=== PATIENT | female | born 1995 | race Caucasian/White ===

== ENCOUNTER 2016-10-21 16:15 | Inpatient (IN) | payer OTHER ==
[~2016-10-21] VITALS: Ht 165.1 cm; Wt 56.4 kg
[~2016-10-21 16:15] MED LIST: AMET1TAB4 PO; AZAT5TAB PO; BIOT10005 PO; CULT10CA2 PO; DELT1TAB PO; DICY1CAP8 PO; FAMO20TA PO; FERR325T PO; GLUC1CAP9 PO; GLUC4CHW PO; HUMA100I5 SC; HYDR12.55 PO; INFL10VL IV; INSURSD SC; LACT3000 PO; LOPE2TAB PO; MESA24CASA PO; MESA50SU PR; METH40VIAL IV; PEPC1TAB4 PO; PRED10TA PO; PRED20TA PO; VSL#CAP PO; ZOFR20TA PO; ZOFR4TAB3 PO
[2016-10-21] MEDS ORDERED: NS 1,000 ML IV ONE ×2 (17:30→19:30)
[2016-10-21] MEDS ORDERED: PANTOPRAZOLE 40MG INJ (PROTONIX) (C9113) IV ONE (17:30)
[2016-10-21] MEDS ORDERED: ONDANSETRON 4MG/2ML VIAL (J2405) IV ONE (17:30)
[2016-10-21] MEDS ORDERED: GASTROGRAFIN SOLUTION 30ML (Q9963) PO ONE ×2 (17:45→18:15)
[2016-10-21] MEDS: MORPHINE 4 MG/ML 1ML SYRINGE IV PRN (17:45)
[2016-10-21 17:48] LABS: CONTROL LINE HCG INT CTR LINE PRESENT
[2016-10-21 17:56] LABS: ALBUMIN 3.7 GM/DL (3.2-5.2); ALKALINE PHOSPHATASE 66 U/L (45-117); ALT/SGPT 56 U/L (12-78); AMYLASE 270 U/L (25-115); ANION GAP 7 MEQ/L (8-16); AST/SGOT 35 U/L (15-37); BILIRUBIN,DIRECT 0.2 MG/DL (0.0-0.2); BILIRUBIN,TOTAL 1.1 MG/DL (0.2-1.0); BLOOD UREA NITROGEN 12 MG/DL (7-18); CALCIUM LEVEL 9.1 MG/DL (8.5-10.1); CARBON DIOXIDE LEVEL 24 MEQ/L (21-32); CHLORIDE LEVEL 104 MEQ/L (98-107); CREATININE FOR GFR 1.11 MG/DL (0.55-1.02); GLOMERULAR FILTRATION RATE > 60.0 (>60); GLUCOSE, FASTING 83 MG/DL (70-105); MEAN CORPUSCULAR HEMOGLOBIN 29.8 pg (27.0-33.0); MEAN CORPUSCULAR HGB CONC 33.6 g/dl (32.0-36.5); MEAN CORPUSCULAR VOLUME 88.5 fl (80.0-96.0); PLATELET COUNT, AUTOMATED 318 k/mm3 (150-450); POTASSIUM SERUM 4.5 MEQ/L (3.5-5.1); RED CELL DISTRIBUTION WIDTH 15.1 % (11.5-14.5); SODIUM LEVEL 135 MEQ/L (136-145); TOTAL PROTEIN 7.8 GM/DL (6.4-8.2); WHITE BLOOD COUNT 4.4 K/mm3 (4.0-10.0)
[2016-10-21] MEDS ORDERED: ISOVUE-370 76% 100ML VIAL (Q9967) As Ordered ONE (18:27)
[2016-10-21 18:44] LABS: BANDS 7 % (< 11)
[2016-10-21 18:45] LABS: ANISOCYTOSIS 1+
--- NOTE | 2016-10-21 19:30 | REPUSA ---
CT of the abdomen and pelvis with contrast Clinical statement: Pain. Technique: Multiple axial CT images were obtained from the base of the lungs through the floor of the pelvis utilizing 5 mm axial slices after administration of oral and nonionic intravenous contrast. C oronal and sagittal reconstructions were also obtained. Comparison: 12/30/2015. Findings: Chest: The visualized lung bases are clear. Abdomen: The liver, spleen, pancreas, kidneys, and adrenal glands are unremarkable. The gallbladder s ignificantly distended. No gallstones are identified. The liver remains enlarged, measuring 24.6 cmin longest diameter. No focal hepatic masses identified. The aorta is within normal limits. There is no evidence of abdominal lymphadenopathy or ascites. Pelvis: The bowel is unremarkable, with no obstructive or inflammatory changes. A right-sided ileosto my appears intact. The new bowel anastomosis in the region of the rectum appears grossly intact. The urinary bladder is within normal limits. The other pelvic structures appear grossly intact. There is no evidence of pelvic lymphadenopathy or ascites. Bones: There are no suspicious osseous abnormalities seen. Impression: 1. The right-sided ileostomy is intact. Other postsurgical bowel changes are grossly within normal li mits. No obstructive or inflammatory bowel changes. 2. Stable hepatomegaly. 3. Distended gallbladder. No evidence of cholelithiasis or acute cholecystitis.
[2016-10-21 20:20] VITALS: BP 123/73
[2016-10-21] MEDS: NS 1,000 ML IV SCH (20:27)
[2016-10-21] MEDS ORDERED: PERCOCET 5MG/325MG TAB PO PRN (20:30)
[2016-10-21] MEDS: PANTOPRAZOLE 40MG INJ (PROTONIX) (C9113) IV SCH (21:00)
[2016-10-21] MEDS ORDERED: ZOFR20TA PO (21:30)
--- NOTE | 2016-10-21 21:40 | REPUSA ---
Clinical history: Right upper quadrant pain. Pancreatitis. Findings: The pancreas is limited in visualization secondary to overlying bowel gas, but appears medardo sly unremarkable. The liver demonstrates uniform echotexture and echogenicity, with no mass lesions. The gallbladder is unremarkable. The common bile duct measures 3 mm and is within normal limits. The right kidney measures 10 cm in length and is unremarkable. There is no ascites. Impression: Unremarkable ultrasound examination of the right upper quadrant.
--- NOTE | 2016-10-21 23:03 | HPE ---
DATE OF ADMISSION: 10/21/2014 PRIMARY CARE PROVIDER: Nadya Webster MD CHIEF COMPLAINT: Left upper quadrant abdominal pain radiating to the back. HISTORY OF PRESENT ILLNESS: The patient is a 20-year-old female with a history of ulcerative colitis who is status post colectomy in August with end-ileostomy, which was completed in April, which since has resolved her symptoms. She reported having been down in [place] for the fall until the past week with her boyfriend and she has been drinking more than usual. Since then she has been having abdominal pain which has progressively worsened, associated with nausea and vomiting. She denies any change in medications. She also reports that while she was down in [place], she was sick with a upper respiratory infection (URI) like symptoms which has resolved. She denies lightheadedness, dizziness, chest pain, shortness of breath, fever or chills of late. PAST MEDICAL HISTORY: Ulcerative colitis. Colectomy with ileostomy in April and then J pouch in August. History of attention deficit/hyperactivity disorder (ADHD). Anemia. Nephrolithiasis. Depression. PAST SURGICAL HISTORY: [place] tooth extraction. Colectomy as outlined above. HOME MEDICATIONS: Since her surgery she has only been on Amethia oral contraceptives. She has been on this for approximately two years. She recently completed a course of prednisone for adrenal insufficiency related to pouchitis and a course of Cipro and Flagyl at that time as well. SOCIAL HISTORY: The patient lives with her parents. 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 She denies excessive alcohol use but was drinking more two drinks per day while in [place]. She is a former smoker, one pack per day, quit one year ago. 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 She is a [employer]. FAMILY HISTORY: Noncontributory. REVIEW OF SYSTEMS: Negative other than HPI. ALLERGIES: No known drug allergies. PHYSICAL EXAMINATION: Temperature 98.8, pulse 91, respiratory rate 18, blood pressure 127.69, O2 saturation 97% on room air. GENERAL: This is a pleasant young female who is sitting on a stretcher, in no acute distress. HEENT: Cranial nerves II-XII are grossly intact. She has numerous piercings. She has moist mucous membranes. No elevation of central venous pressure (CVP). CARDIOVASCULAR: S1, S2. She is mildly tachycardic. RESPIRATORY: Exam is clear. ABDOMEN: Bowel sounds are present. Abdomen is soft. Her ileostomy is draining loose watery stool. There is tenderness to palpation of the epigastric region. EXTREMITIES: No clubbing, cyanosis or edema. LABORATORY STUDIES: WBC 4.4, hemoglobin 50.3, platelet count 318. Chemistry panel: Sodium 135, potassium 4.5, chloride 104, bicarbonate 24, BUN 12, creatinine 1.1, amylase 270, lipase 2717. UA: Essentially unremarkable. IMAGING: The patient did have a CT scan of the abdomen which reveals right sided ileostomy intact. Stable hepatomegaly. Distended gallbladder. No evidence of cholelithiasis or acute cholelithiasis. ASSESSMENT AND PLAN: This is a 20-year-old female with pancreatitis. 1. Pancreatitis. The etiology of which remains somewhat unclear. She denies excessive intake, but more than her usual alcohol intake prior to the onset. I feel this is the most likely scenario. However, she is also on Amethia, which can cause pancreatitis. I think this is less likely as she has been on this medication for two years. However, for the time being we will hold this while she is in the hospital. Also the patient did have a recent upper respiratory tract infection, which could be a viral source. I will check a lipid panel in the morning and get a second gallbladder ultrasound as her gallbladder was distended. CT scan of her abdomen did not reveal any arcadio stones. The patient will be provided with IV pain medication, IV fluids, kept nothing by mouth (npo) and admitted to the medical/surgical floor. 2. History of ulcerative colitis. Status post ileostomy. She is apparently not on any medication or treatment for this at this time. 3. Adrenal insufficiency. She was chronically on prednisone and during a recent episode of pouchitis she did have some adrenal insufficiency. Will monitor closely. Should she become hemodynamically unstable or worsened despite our interventions, consider IV hydrocortisone. 4. Anemia. Resolved. 5. Depression. She is not on any medications. Does not appear at all depressed. 6. ADHD. The patient is no longer on any medications. 7. Deep venous thrombosis (DVT) prophylaxis. Sequentials and thromboembolism deterrents (TEDs), early ambulation. DISPOSITION: The patient is admitted to the medical surgical floor to Dr. Arrieta's service who will continue following the patient at 7:00 a.m.
[2016-10-22] VITALS: BP 116/68
[2016-10-22 04:00] VITALS: BP 108/59
[2016-10-22 06:49] LABS: MEAN CORPUSCULAR HEMOGLOBIN 29.9 pg (27.0-33.0); MEAN CORPUSCULAR HGB CONC 33.5 g/dl (32.0-36.5); MEAN CORPUSCULAR VOLUME 89.2 fl (80.0-96.0); RED CELL DISTRIBUTION WIDTH 14.8 % (11.5-14.5); WHITE BLOOD COUNT 4.4 K/mm3 (4.0-10.0)
[2016-10-22 07:11] LABS: ANION GAP 9 MEQ/L (8-16); BLOOD UREA NITROGEN 8 MG/DL (7-18); CALCIUM LEVEL 7.3 MG/DL (8.5-10.1); CARBON DIOXIDE LEVEL 19 MEQ/L (21-32); CHLORIDE LEVEL 111 MEQ/L (98-107); CREATININE FOR GFR 0.75 MG/DL (0.55-1.02); GLOMERULAR FILTRATION RATE > 60.0 (>60); GLUCOSE, FASTING 71 MG/DL (70-105); POTASSIUM SERUM 3.8 MEQ/L (3.5-5.1); SODIUM LEVEL 139 MEQ/L (136-145)
[2016-10-22] MEDS: NS 1,000 ML IV SCH (07:13)
[2016-10-22 08:00] VITALS: BP 132/61
[2016-10-22] MEDS: ONDANSETRON 4MG/2ML VIAL (J2405) IV PRN ×3 (08:23→21:26)
[2016-10-22] MEDS: PERCOCET 5MG/325MG TAB PO PRN ×2 (08:24→16:08)
[2016-10-22] MEDS ORDERED: DEXTROSE 50% 50 ML SYRINGE IV PRN (13:15)
[2016-10-22] MEDS ORDERED: GLUCOSE 4 GM CHEW TABLET PO PRN (13:15)
[2016-10-22] MEDS ORDERED: GLUCAGON FOR INJ 1 MG VIAL (J1610) SC PRN (13:15)
[2016-10-22] MEDS: D5W/0.9% SODIUM CHLORIDE 1,000 ML IV SCH ×2 (13:45→21:27)
[2016-10-22] MEDS: MULTIVITAMIN -ADULT INJECTION 10 ML in D5W/0.9% SODIUM CHLORIDE 1,000 ML IV SCH (14:11)
[2016-10-22 16:00] VITALS: BP 104/56
--- NOTE | 2016-10-22 18:06 | IPN ---
DATE: 10/22/2016 SUBJECTIVE: The patient seen and examined in the room today. The patient says her abdominal pain seemed improving. No overnight events reported. OBJECTIVE: VITAL SIGNS: Temperature is 97.9, pulse 103, respiratory rate 99, followup blood pressure is 132/61, pulse oximetry 95% on room air. GENERAL: No sign of acute distress. Alert and oriented times three. HEENT: Normocephalic, atraumatic. Extraocular motor grossly intact. CARDIOVASCULAR: Positive S1, S2 regular rate. LUNGS: Clear to auscultation bilaterally. ABDOMEN: Bowel sounds are present. Abdomen is soft. Ileostomy is seen in place. EXTREMITIES: No edema. No sign of cyanosis. LABORATORY DATA: White blood count (WBC) is 4.4, hemoglobin 11.3, hematocrit 33.4, platelet count is 195. Sodium is 139, potassium is 3.8, chloride is 111, CO2 19, BUN 8, creatine is 0.75, glomerular filtration rate (GFR) greater than 60, fasting glucose is 71, calcium is 7.3, lipase is 1606. ASSESSMENT AND PLAN: 1. Acute pancreatitis. Ultrasound was performed; there is no stone. The patient lipid panel is within normal range. Denies any recent medication changes. The patient is nothing by mouth due to the hypoglycemic episode. The patient's normal saline is switched to D5 normal saline (NS). The patient will continue taking pain medication as needed. 2. History of ulcerative colitis, status post ileostomy. The patient is following with Dr. Coronel in an outpatient setting. The patient is not on any medication treatments. 3. History of renal insufficiency. The patient was on chronic steroids previously. Will continue monitoring. If the patient becomes hemodynamically unstable, will use IV steroids. 4. History of anemia, resolved. 5. History of depression. 6. History of attention deficit hyperactive disorder (ADHD), not on any medications. 7. Deep vein thrombosis (DVT) prophylaxis. SAW, sequential and compression device. MTDD
[2016-10-22 20:00] VITALS: BP 122/81
[2016-10-22] MEDS: PANTOPRAZOLE 40MG INJ (PROTONIX) (C9113) IV SCH (20:10)
[2016-10-22] MEDS: MORPHINE 2 MG/ML 1ML SYRINGE IV PRN (20:30)
[2016-10-23] MEDS: MORPHINE 2 MG/ML 1ML SYRINGE IV PRN ×2 (03:15→13:08)
[2016-10-23 04:00] VITALS: BP 120/68
[2016-10-23] MEDS: D5W/0.9% SODIUM CHLORIDE 1,000 ML IV SCH (06:14)
[2016-10-23 07:53] LABS: MEAN CORPUSCULAR HEMOGLOBIN 29.6 pg (27.0-33.0); MEAN CORPUSCULAR HGB CONC 33.4 g/dl (32.0-36.5); MEAN CORPUSCULAR VOLUME 88.5 fl (80.0-96.0); WHITE BLOOD COUNT 3.4 K/mm3 (4.0-10.0)
[2016-10-23 08:00] VITALS: BP 92/54
[2016-10-23 08:10] LABS: ANION GAP 5 MEQ/L (8-16); BLOOD UREA NITROGEN 2 MG/DL (7-18); CALCIUM LEVEL 7.5 MG/DL (8.5-10.1); CARBON DIOXIDE LEVEL 25 MEQ/L (21-32); CHLORIDE LEVEL 108 MEQ/L (98-107); CREATININE FOR GFR 0.84 MG/DL (0.55-1.02); GLOMERULAR FILTRATION RATE > 60.0 (>60); GLUCOSE, FASTING 123 MG/DL (70-105); POTASSIUM SERUM 3.2 MEQ/L (3.5-5.1); SODIUM LEVEL 138 MEQ/L (136-145)
[2016-10-23] MEDS: ONDANSETRON 4MG/2ML VIAL (J2405) IV PRN (13:07)
[2016-10-23] MEDS: KCL 10MEQ IN 100ML SWI (KRUN) 10 MEQ in APPROPRIATE DILUENT 1 EA IV SCH ×4 (13:08→14:07)
[2016-10-23] MEDS: MULTIVITAMIN -ADULT INJECTION 10 ML in D5W/0.9% SODIUM CHLORIDE 1,000 ML IV SCH (15:24)
[2016-10-23 17:00] VITALS: BP 107/64
--- NOTE | 2016-10-23 17:42 | IPN ---
DATE: 10/23/2016 SUBJECTIVE: The patient seen and examined in the room today. The patient is still experiencing some intermittent abdominal pain but intensity and frequency is much improved compared to a few days ago. No overnight events reported. OBJECTIVE: VITAL SIGNS: Temperature is 98.7, pulse 62, respirations 16. Blood pressure is 92/54. Pulse oximetry is 100% on room air. GENERAL: No sign of acute distress. Alert and oriented times three. HEENT: Normocephalic, atraumatic. Extraocular motor grossly intact. LUNGS: Clear to auscultation bilaterally. CV: RR, positive S1 and S2. ABDOMEN: Ileostomy in place. Abdomen is soft. bowel sounds are present. EXTREMITIES: No edema. No sign of cyanosis. LABORATORY DATA: White blood count (WBC) is 3.4, hemoglobin 11.6, hematocrit 34.9, platelet count is 221. Sodium is 138, potassium is 3.2, chloride is 108, carbon dioxide is 25, BUN 2, creatinine 0.84, GFR greater than 60, fasting glucose 123, calcium is 7.5, lipase level is 1093. ASSESSMENT AND PLAN: 1. Acute pancreatitis. Ultrasound was performed and showed there is no stone. Lipid panel is within normal range. Denies any recent medication changes. The patient is nothing by mouth. Pain controlled is IV morphine. The patient is currently maintained with D5-S. 2. Hypoglycemia. When the patient is nothing by mouth, the patient started to have an episode of glucose level of 59. The patient does not have diabetes. The patient's fluid was switched from normal saline to D5NS. 3. Hypokalemia. The patient's potassium is supplemented intravenously. 4. Ulcerative colitis. The patient has been followed with Dr. Coronel in the outpatient setting. The patient is not on any active medication regimen at this moment. 5. History of adrenal insufficiency. The patient was on chronic steroids previously. Continue to monitor. If the patient becomes hemodynamically unstable, will use IV steroids. 6. History of anemia, stable 7. History of depression, stable. 8. History of attention deficit hyperactive disorder (ADHD), not on any medications, stable. 9. Deep vein thrombosis (DVT) prophylaxis. On thromboembolic compression stockings (TEDS), sequential and compression device. MTDD
[2016-10-23] MEDS ORDERED: ACETAMINOPHEN TAB 650MG DOSE (2X325MG) PO ONE (17:45)
[2016-10-23 20:00] VITALS: BP 105/58
[2016-10-23] MEDS: PANTOPRAZOLE 40MG INJ (PROTONIX) (C9113) IV SCH (21:22)
[2016-10-23] MEDS: KCL 20MEQ IN D5/NS 1000ML 1,000 ML IV SCH (23:13)
[2016-10-24] VITALS: BP 108/62
[2016-10-24] MEDS: KCL 20MEQ IN D5/NS 1000ML 1,000 ML IV SCH ×4 (05:40→22:39)
[2016-10-24] MEDS: ONDANSETRON 4MG/2ML VIAL (J2405) IV PRN ×2 (08:17→23:31)
[2016-10-24 08:18] LABS: MEAN CORPUSCULAR HEMOGLOBIN 29.5 pg (27.0-33.0); MEAN CORPUSCULAR HGB CONC 33.4 g/dl (32.0-36.5); MEAN CORPUSCULAR VOLUME 88.4 fl (80.0-96.0); WHITE BLOOD COUNT 4.3 K/mm3 (4.0-10.0)
[2016-10-24] MEDS: MORPHINE 2 MG/ML 1ML SYRINGE IV PRN (08:26)
[2016-10-24 08:38] LABS: ANION GAP 8 MEQ/L (8-16); BLOOD UREA NITROGEN < 1 MG/DL (7-18); CALCIUM LEVEL 7.8 MG/DL (8.5-10.1); CARBON DIOXIDE LEVEL 23 MEQ/L (21-32); CHLORIDE LEVEL 110 MEQ/L (98-107); CREATININE FOR GFR 0.75 MG/DL (0.55-1.02); GLOMERULAR FILTRATION RATE > 60.0 (>60); GLUCOSE, FASTING 118 MG/DL (70-105); POTASSIUM SERUM 3.9 MEQ/L (3.5-5.1); SODIUM LEVEL 141 MEQ/L (136-145)
[2016-10-24 08:40] VITALS: BP 118/60
[2016-10-24] MEDS: MULTIVITAMIN -ADULT INJECTION 10 ML in D5W/0.9% SODIUM CHLORIDE 1,000 ML IV SCH (13:34)
--- NOTE | 2016-10-24 15:00 | IPN ---
DATE: 10/24/2016 SUBJECTIVE: The patient is seen and examined in the room today. Yesterday, the patient had an episode of fever. Oral temperature was measured at 100.5 around 5:00 o'clock. The patient was taking a nap at the time of the event. One dose of Tylenol was given, and then the fever resolved spontaneously. This morning, the patient had a temperature of 99. The patient could not recall any significant triggers. This morning, the patient did experience some intermittent nausea. No vomiting. The patient also started to experience a new type of abdominal pain. She feels that it is pain from empty stomach for a long duration. It is not pancreatitis pain that she had experienced previously. OBJECTIVE: VITAL SIGNS: Temperature is 99, pulse 94, respiration rate 18. Blood pressure is 118/60. Pulse oximetry is 98% on room air. GENERAL: No sign of acute distress. Alert and oriented times three. HEENT: Normocephalic, atraumatic. Extraocular motor grossly intact. CARDIOVASCULAR: Positive S1, S2. Regular rate. LUNGS: Clear to auscultation bilaterally. ABDOMEN: Ileostomy in place. Abdomen is soft. Bowel sounds present. EXTREMITIES: No edema. No sign of cyanosis. LABORATORY DATA: White blood count (WBC) is 4.3, hemoglobin 11.4, hematocrit 34.2, platelet count is 235. Sodium is 141, potassium is 3.9, chloride is 110, carbon dioxide is 23, BUN less than 1, creatinine 0.75, GFR greater than 60, fasting glucose 118, calcium is 7.8, lipase is 517. ASSESSMENT AND PLAN: 1. Pancreatitis. The patient has been nothing by mouth and on fluid resuscitation. The patient's pain control is managed with IV morphine. The patient's lipase level continues to be improved. Since admission it has been [place] [address] to 500. The patient has had significant improvement in the abdominal pain. Today, we will try a clear liquid diet at lunchtime. If the patient can tolerate it, we will advance to full liquids in the evening time. 2. Anemia. No active sign of bleeding noted. Continue to monitor. 3. Hypoglycemia, resolved. Previously, the patient was nothing by mouth and the patient was on normal saline, but since the patient is switched to D5 normal saline, no recurrence of hypoglycemia has been observed. The patient is on hypoglycemia protocol. 4. Hypokalemia. The patient had supplement. Currently, potassium level is within normal range. Continue to monitor. 5. Ulcerative colitis. The patient has been followed with Dr. Coronel in the outpatient setting. The patient is not on any active medications at this moment. Continue to monitor. 6. History of adrenal insufficiency. The patient was on chronic steroids previously. Continue to monitor. If the patient becomes hemodynamically stable, we will use IV steroids. 7. History of depression, stable. Not on any medications. 8. History of attention deficit hyperactive disorder (ADHD), not on any medications. 9. Deep vein thrombosis (DVT) prophylaxis. The patient is on thromboembolic compression stockings (TEDS), sequential and compression device.
[2016-10-24 16:00] VITALS: BP 108/62
[2016-10-24 19:30] VITALS: BP 108/60
[2016-10-24] MEDS ORDERED: ACETAMINOPHEN TAB 650MG DOSE (2X325MG) PO PRN (20:00)
[2016-10-24] MEDS: PANTOPRAZOLE 40MG INJ (PROTONIX) (C9113) IV SCH (20:39)
[2016-10-25 04:00] VITALS: BP 102/87
[2016-10-25] MEDS: ONDANSETRON 4MG/2ML VIAL (J2405) IV PRN ×2 (07:52→18:02)
[2016-10-25 08:00] VITALS: BP 106/58
[2016-10-25 08:17] LABS: MEAN CORPUSCULAR HGB CONC 33.4 g/dl (32.0-36.5); MEAN CORPUSCULAR VOLUME 89.6 fl (80.0-96.0); WHITE BLOOD COUNT 3.8 K/mm3 (4.0-10.0)
[2016-10-25 09:39] LABS: POTASSIUM SERUM 4.1 MEQ/L (3.5-5.1); SODIUM LEVEL 142 MEQ/L (136-145)
[2016-10-25] MEDS: KCL 20MEQ IN D5/NS 1000ML 1,000 ML IV SCH ×2 (10:05→23:31)
[2016-10-25 10:19] LABS: ANION GAP 8 MEQ/L (8-16); BLOOD UREA NITROGEN < 1 MG/DL (7-18); CALCIUM LEVEL 7.9 MG/DL (8.5-10.1); CARBON DIOXIDE LEVEL 23 MEQ/L (21-32); CHLORIDE LEVEL 111 MEQ/L (98-107); CREATININE FOR GFR 0.73 MG/DL (0.55-1.02); GLOMERULAR FILTRATION RATE > 60.0 (>60); GLUCOSE, FASTING 104 MG/DL (70-105)
[2016-10-25] MEDS: MORPHINE 2 MG/ML 1ML SYRINGE IV PRN ×2 (12:09→18:02)
[2016-10-25 12:15] VITALS: BP 110/63
[2016-10-25] MEDS ORDERED: ONDANSETRON 4MG/2ML VIAL (J2405) IV ONE (12:30)
[2016-10-25] MEDS: MORPHINE 4 MG/ML 1ML SYRINGE IV PRN (12:45)
[2016-10-25] MEDS: MULTIVITAMIN -ADULT INJECTION 10 ML in D5W/0.9% SODIUM CHLORIDE 1,000 ML IV SCH (15:26)
[2016-10-25 16:00] VITALS: BP 120/64
[2016-10-25] MEDS ORDERED: COSYNTROPIN 0.25 MG/ML VIAL (J0835) IV ONE (17:00)
[2016-10-25 20:00] VITALS: BP 106/53
[2016-10-25] MEDS: PANTOPRAZOLE 40MG INJ (PROTONIX) (C9113) IV SCH (20:40)
--- NOTE | 2016-10-25 23:07 | IPN ---
DATE: 10/25/2016 SUBJECTIVE: Patient seen and examined in the room today. Patient states she started having recurrence of the fever yesterday around 6:45. Patient started having persistent nausea since then. Patient also complained about recurrence of the abdominal pain. Patient was started on liquid diet yesterday. Patient also noted to have positive Hemoccult. OBJECTIVE: VITAL SIGNS: Temperature 98.5, pulse is 84, respirations 18, blood pressure is 106/58, pulse oximetry 98% in room air. GENERAL: Fatigued. No sign of acute distress. Alert and oriented times three. HEENT: Normocephalic, atraumatic. Extraocular motor grossly intact. CARDIOVASCULAR: Positive S1, S2, regular rate. LUNGS: Clear to auscultation bilaterally. ABDOMEN: Ileostomy in place. Abdomen is soft. Discomfort to palpation. EXTREMITIES: No edema. No sign of cyanosis. LABORATORY DATA: WBC is 3.8, hemoglobin 11.1, hematocrit 33.2, platelet count is 207. ESR is 39. Sodium is 142, potassium 4.1, chloride is 111, carbon dioxide 23, BUN is less than 1, creatinine is 0.73, GFR greater than 60, fasting glucose 104, calcium 7.9, C-reactive protein 3.25. Lipase is 1456. 1. Acute pancreatitis. Initially patient has continued improvement on the lipase level. Patient's abdominal pain also shows significant improvement. Patient was started on a clear liquid diet and full liquid diet yesterday; however, since the initiation of the oral intake, patient started to have recurrence and worsening of the abdominal pain. Patient still complained about persistent nausea and there is elevation in the lipase, so patient was put back on nothing by mouth. The gastrointestinal (GI) specialist, Dr. Coronel, will be consulted. 2. History of ulcerative colitis, status post complete colon resection. Patient has anastomosis of the jejunum and anus. Patient has an ostomy. Now patient started noted to have positive Hemoccult. GI specialist, Dr. Coronel, has been consulted. 3. Anemia. Now patient is Hemoccult positive. Patient is not on any blood thinner. 4. Hypokalemia. Patient is receiving potassium through the intravenous (IV). Continue to monitor level. 5. Hypoglycemia. Previously patient was put on nothing by mouth, and the patient was on normal saline; however, the patient has hypoglycemia, and her fluid is changed to D5 normal saline. No recurrence of hypoglycemic episodes observed. 6. History of adrenal insufficiency. Patient on chronic steroid previously. Will consider use of IV steroid if patient becomes hemodynamically stable. 7. History of depression. Not on any active medication. 8. History of attention deficit hyperactivity disorder (ADHD). Not on any active medications. 9. Deep vein thrombosis (DVT) prophylaxis. Patient has thromboembolic deterrents (TEDs) and sequential compression devices.
[2016-10-26 04:00] VITALS: BP 90/55
[2016-10-26 06:42] LABS: MEAN CORPUSCULAR HEMOGLOBIN 29.8 pg (27.0-33.0); MEAN CORPUSCULAR HGB CONC 33.3 g/dl (32.0-36.5); MEAN CORPUSCULAR VOLUME 89.7 fl (80.0-96.0); RED CELL DISTRIBUTION WIDTH 14.9 % (11.5-14.5); WHITE BLOOD COUNT 3.8 K/mm3 (4.0-10.0)
[2016-10-26 07:05] LABS: ANION GAP 6 MEQ/L (8-16); BLOOD UREA NITROGEN < 1 MG/DL (7-18); CALCIUM LEVEL 7.4 MG/DL (8.5-10.1); CARBON DIOXIDE LEVEL 26 MEQ/L (21-32); CHLORIDE LEVEL 109 MEQ/L (98-107); CREATININE FOR GFR 0.74 MG/DL (0.55-1.02); GLOMERULAR FILTRATION RATE > 60.0 (>60); GLUCOSE, FASTING 111 MG/DL (70-105); POTASSIUM SERUM 3.5 MEQ/L (3.5-5.1); SODIUM LEVEL 141 MEQ/L (136-145)
[2016-10-26] MEDS: ONDANSETRON 4MG/2ML VIAL (J2405) IV PRN ×3 (07:11→22:45)
[2016-10-26] MEDS: MORPHINE 2 MG/ML 1ML SYRINGE IV PRN (07:11)
[2016-10-26] MEDS: KCL 20MEQ IN D5/NS 1000ML 1,000 ML IV SCH ×2 (07:12→14:53)
[2016-10-26 08:00] VITALS: BP 132/68
[2016-10-26] MEDS: PERCOCET 5MG/325MG TAB PO PRN (08:00)
[2016-10-26 09:18] LABS: ALBUMIN 2.1 GM/DL (3.2-5.2); ALBUMIN/GLOBULIN RATIO 0.68 (1.00-1.93); ALKALINE PHOSPHATASE 44 U/L (45-117); ALT/SGPT 27 U/L (12-78); AST/SGOT 10 U/L (15-37); BILIRUBIN,DIRECT < 0.1 MG/DL (0.0-0.2); BILIRUBIN,TOTAL 0.3 MG/DL (0.2-1.0); TOTAL PROTEIN 5.2 GM/DL (6.4-8.2)
[2016-10-26] MEDS: MORPHINE 4 MG/ML 1ML SYRINGE IV PRN ×2 (09:50→18:22)
[2016-10-26] MEDS: predniSONE 20 MG TAB PO SCH (09:54)
[2016-10-26 10:20] LABS: INR 1.15
--- NOTE | 2016-10-26 14:25 | IPN ---
DATE: 10/26/2016 SUBJECTIVE: Patient seen and examined in the room today. Patient continues to complain about persistent nausea. This morning patient noted to have blood in the vomit. Patient continued to see blood in the stool. Yesterday ACTH study was performed. During the study the patient stated her symptoms showed significant better when the patient resumed cosyntropin. OBJECTIVE: VITAL SIGNS: Temperature 98.7, pulse is 95, respirations 18, blood pressure is 132/68, pulse oximetry 98% in room air. GENERAL: Fatigued. Mild to moderate distress secondary to ongoing abdominal pain and nausea. Alert and oriented times three. HEENT: Normocephalic, atraumatic. Extraocular motors grossly intact. CARDIOVASCULAR: Positive S1, S2, regular rate. LUNGS: Clear to auscultation bilaterally. ABDOMEN: Ileostomy is in place over the right lower abdomen. Abdomen is soft. Bowel sounds present. There is discomfort to palpation. EXTREMITIES: No edema. No sign of cyanosis. LABORATORY DATA: WBC is 3.8, hemoglobin 10.7, hematocrit 32.2, platelet count is 213. Sodium is 141, potassium 3.5, chloride is 109, carbon dioxide 26, BUN is less than 1, creatinine is 0.74, GFR greater than 60, fasting glucose 111, calcium 7.4, total bilirubin 0.3, direct bilirubin less than 0.1, AST 10, ALT 27, alkaline phosphatase 44, total protein is 5.2, albumin 2.1. Lipase is 366. ASSESSMENT/PLAN: 1. Persistent abdominal pain. When the patient was admitted, the patient did have elevated lipase and amylase. The patient has bee placed nothing by mouth. Her lipase level continues to decrease, however, the patient does still complain about persistent abdominal discomfort, now with blood in the stool and blood in the vomit. Patient's pain is not improving with improvement of the lipase. Dr. Coronel has been consulted. We will continue to keep the patient nothing by mouth until the resolution of abdominal pain and vomiting. If the patient's symptoms resolve tomorrow, we can advance the patient to a liquid diet. 2. Acute pancreatitis. Patient has been nothing by mouth with IV fluids. Today, the lipase finally returned to normal range. I will continue to monitor. 3. History of ulcerative colitis, status post complete colon resection. Patient has anastomosis of the jejunum and anus. Patient currently has an ostomy. Most recent procedure was done in August of 2016. Currently patient has a positive hemoccult. 4. Anemia. Hemoccult positive. Per patient, patient started to have blood in the vomit. The patient is not on any blood thinners. Will continue to monitor the patient's hemoglobin and hematocrit. There is no significant drop of hemoglobin and hematocrit at this moment. Patient is hemodynamically stable. 5. Episode of hypoglycemia. In the first 24 hours when the patient was placed nothing by mouth and supplemented with IV normal sale, the patient had an episode of hypoglycemia and the fluid has been adjusted to the D5NS, no recurrence of hypoglycemic since. 6. History of adrenal insufficiency. Patient was chronic high dose steroid therapy previously. The last time the patient had steroids was approximately three weeks ago. ACTH challenge test was ordered. Will follow with the results. We will start a trial of prednisone for the patient to see if the patient can improve symptomatically. 7. History of depression. Not on any active medication. 8. History of attention deficit hyperactivity disorder (ADHD). Not on any active medications. 9. Deep vein thrombosis (DVT) prophylaxis. Due to current bleeding, patient is on thromboembolic deterrent stockings (TEDS), and sequential compression devices (SCD).
[2016-10-26] MEDS: PANTOPRAZOLE 40MG INJ (PROTONIX) (C9113) IV SCH ×2 (14:56→21:16)
[2016-10-26 16:00] VITALS: BP 98/55
[2016-10-26] MEDS: MULTIVITAMIN -ADULT INJECTION 10 ML in D5W/0.9% SODIUM CHLORIDE 1,000 ML IV SCH (16:04)
[2016-10-26] MEDS: SUCRALFATE 1 GM TAB PO SCH ×2 (18:23→21:15)
[2016-10-26 20:00] VITALS: BP_SYST 120; BP_SYST 124; BP_DIAS 55; BP_DIAS 68
[2016-10-27] VITALS: BP 108/59
[2016-10-27] MEDS: KCL 20MEQ IN D5/NS 1000ML 1,000 ML IV SCH (01:10)
[2016-10-27 06:45] LABS: MEAN CORPUSCULAR HEMOGLOBIN 30.1 pg (27.0-33.0); MEAN CORPUSCULAR HGB CONC 34.3 g/dl (32.0-36.5); MEAN CORPUSCULAR VOLUME 87.8 fl (80.0-96.0); RED CELL DISTRIBUTION WIDTH 14.8 % (11.5-14.5); WHITE BLOOD COUNT 4.6 K/mm3 (4.0-10.0)
[2016-10-27 07:06] LABS: ANION GAP 7 MEQ/L (8-16); BLOOD UREA NITROGEN < 1 MG/DL (7-18); CALCIUM LEVEL 7.5 MG/DL (8.5-10.1); CARBON DIOXIDE LEVEL 26 MEQ/L (21-32); CHLORIDE LEVEL 110 MEQ/L (98-107); CREATININE FOR GFR 0.73 MG/DL (0.55-1.02); GLOMERULAR FILTRATION RATE > 60.0 (>60); GLUCOSE, FASTING 100 MG/DL (70-105); POTASSIUM SERUM 3.2 MEQ/L (3.5-5.1); SODIUM LEVEL 143 MEQ/L (136-145)
[2016-10-27] MEDS: SUCRALFATE 1 GM TAB PO SCH ×4 (08:16→20:34)
[2016-10-27] MEDS: PANTOPRAZOLE 40MG INJ (PROTONIX) (C9113) IV SCH ×2 (08:16→20:34)
[2016-10-27] MEDS: predniSONE 20 MG TAB PO SCH (08:16)
[2016-10-27] MEDS: ONDANSETRON 4MG/2ML VIAL (J2405) IV PRN (08:16)
[2016-10-27 08:17] VITALS: BP 92/52
[2016-10-27] MEDS: MORPHINE 4 MG/ML 1ML SYRINGE IV PRN (09:34)
[2016-10-27] MEDS: KCL 10MEQ IN 100ML SWI (KRUN) 10 MEQ in APPROPRIATE DILUENT 1 EA IV SCH ×4 (11:35→12:54)
[2016-10-27] MEDS: MULTIVITAMIN -ADULT INJECTION 10 ML in D5W/0.9% SODIUM CHLORIDE 1,000 ML IV SCH (14:28)
[2016-10-27 16:00] VITALS: BP 121/72
--- NOTE | 2016-10-27 17:43 | IPN ---
DATE: 10/27/2016 SUBJECTIVE: Patient seen and examined in the room today. Patient stated her nausea is improving. Abdominal pain is also improving. Her end-ileostomy and the stool content is also improving. Patient states she wants to start advancing her diet. OBJECTIVE: VITAL SIGNS: Temperature 98.2, pulse 96, respiratory rate 18, blood pressure 92/52, pulse oximetry 98% on room air. GENERAL: No acute distress. Alert and oriented times three. HEENT: Normocephalic, atraumatic. Extraocular motor grossly intact. CARDIOVASCULAR: Positive S1, S2. Regular rate. LUNGS: Clear to auscultation bilaterally. ABDOMEN: Ileostomy in place toward the right mid lower abdomen. Abdomen soft. Bowel sounds present. Discomfort to palpation. EXTREMITIES: No edema. No signs of cyanosis. LABORATORY DATA: WBC 4.6, hemoglobin 10, hematocrit 29.2, platelet count 195. Sodium 143, potassium 3.2, chloride 110, carbon dioxide 26, BUN less than 1, creatinine 0.73, GFR greater than 60, fasting glucose 100, calcium 7.5, lipase 459. ASSESSMENT AND PLAN: 1. Pancreatitis. Patient has been nothing by mouth, supported with intravenous (IV) fluid. Patient has been improving in the last 24 hours. Will re-attempt again today. 2. History of ulcerative colitis status post complete colon resection. The patient had anastomosis of the jejunum. Patient now currently for ostomy. Most recent surgery was performed in 08/2016. 3. Positive hemoccult. I looked at the stool sample today. Gross blood is noted in the content. It could be still positive for occult blood. Will continue to monitor. No significant drop in hemoglobin. 4. Anemia. Per patient, patient was vomiting blood and a significant increase of maroon blood noted in stool content; however, patient denies any recurrence of vomit and I looked at the stool sample and I cannot appreciate any significant blood in the stool. At this moment, patient hemodynamically stable. 5. Episode of hypoglycemia. When patient was placed on nothing by mouth, she was placed on normal saline. Fluid has been adjusted to the D5NS. 6. History of depression. Not on any active medication. 7. History of attention deficit hyperactivity disorder (ADHD). Not on any active medication. 8. Deep vein thrombosis (DVT) prophylaxis. Due to current gastrointestinal (GI) bleeding, patient is on thromboembolic deterrent stockings (TEDS), and sequential compression devices.
[2016-10-27 20:00] VITALS: BP 110/56
[2016-10-28] VITALS: BP 96/53
[2016-10-28] MEDS: KCL 20MEQ IN D5/NS 1000ML 1,000 ML IV SCH ×4 (00:48→23:36)
[2016-10-28 06:48] LABS: MEAN CORPUSCULAR HEMOGLOBIN 29.9 pg (27.0-33.0); MEAN CORPUSCULAR HGB CONC 33.3 g/dl (32.0-36.5); MEAN CORPUSCULAR VOLUME 89.6 fl (80.0-96.0); RED CELL DISTRIBUTION WIDTH 14.4 % (11.5-14.5); WHITE BLOOD COUNT 5.8 K/mm3 (4.0-10.0)
[2016-10-28 07:01] LABS: ANION GAP 6 MEQ/L (8-16); BLOOD UREA NITROGEN < 1 MG/DL (7-18); CALCIUM LEVEL 7.9 MG/DL (8.5-10.1); CARBON DIOXIDE LEVEL 26 MEQ/L (21-32); CHLORIDE LEVEL 111 MEQ/L (98-107); CREATININE FOR GFR 0.78 MG/DL (0.55-1.02); GLOMERULAR FILTRATION RATE > 60.0 (>60); GLUCOSE, FASTING 95 MG/DL (70-105); POTASSIUM SERUM 3.4 MEQ/L (3.5-5.1); SODIUM LEVEL 143 MEQ/L (136-145)
[2016-10-28] MEDS: SUCRALFATE 1 GM TAB PO SCH ×4 (07:22→20:10)
[2016-10-28 08:00] VITALS: BP 106/58
[2016-10-28] MEDS: PANTOPRAZOLE 40MG INJ (PROTONIX) (C9113) IV SCH (09:33)
[2016-10-28] MEDS: predniSONE 20 MG TAB PO SCH (09:34)
[2016-10-28] MEDS ORDERED: POTASSIUM CHLORIDE 10 MEQ SR TABLET PO ONE (10:15)
--- NOTE | 2016-10-28 14:11 | IPN ---
DATE OF VISIT: 10/28/2016 SUBJECTIVE: The patient is seen and examined in the room today. The patient continues to complain about nausea, but she has been taking Zofran, and it helped with the symptom. The patient does complain about abdominal discomfort, but it is much improved compared to yesterday. The patient stated her stool in the ostomy bag, the color is more toward a brownish color. It is not as red as previously. No fever observed. OBJECTIVE: VITAL SIGNS: Temperature is 97.8, pulse is 90, respiration 18, blood pressure is 106/58, pulse oximetry 99% in room air. GENERAL: No sign of acute distress. Alert and oriented times three. HEENT: Normocephalic, atraumatic. Extraocular motor grossly intact. CARDIOVASCULAR: Positive S1, S2. Regular rate. LUNGS: Clear to auscultation bilaterally. ABDOMEN: Ileostomy in place toward the right mid lower abdomen. Abdomen soft. Bowel sounds present. EXTREMITIES: No edema. No signs of cyanosis. LABORATORY DATA: WBC 5.8, hemoglobin 10.8, hematocrit 32.4, platelet count is 235. Sodium 143, potassium 3.4, chloride 111, carbon dioxide 26, BUN less than 1, creatinine 0.78, GFR greater than 60, fasting glucose 95, calcium 7.9, lipase is 584. ASSESSMENT AND PLAN: 1. Pancreatitis. The patient was advanced to clear-liquid diet after the improvement of abdominal pain. The patient's pain is not as severe as before. Dr. Coronel has been consulted in the case. There is still some mild elevation of the lipase. Will stay with the liquid diet for today. Continue to observe. 2. History of ulcerative colitis, status post complete colon resection. The patient has a J pouch with anastomosis of the jejunum with the anus. Currently, the patient has ostomy, most recently performed in August 2016. The patient has one more procedure to complete her anastomosis. 3. Positive hemoccult. The patient stated her stool has less reddish-black colors. I did have a chance to observe the stool from the ostomy. The color is more leaning toward a brownish color. The patient does not have a significant drop in hemoglobin or hematocrit. Continue to monitor. 4. Anemia. No more vomiting blood or significant bloody sputum. Hemoglobin and hematocrit stable. Currently, the patient is hemodynamically stable. 5. Episode of hypoglycemia. The patient was placed on nothing by mouth while the patient was on intravenous (IV) normal saline. The patient had an episode of hypoglycemia. Then, the patient's IV fluid switched to D5NS. No more hypoglycemic episodes observed. Due to the burning sensation for the potassium supplement, the patient's IV rate has been decreased to 90 mL per hour. 6. History of depression. Not on any active medication. 7. Attention deficit hyperactivity disorder (ADHD). Not on any active medication. 8. Deep vein thrombosis (DVT) prophylaxis. Due to the gastrointestinal (GI) bleeding, the patient is thromboembolic deterrents (TEDs) and sequential compression devices.
[2016-10-28] MEDS: MULTIVITAMIN -ADULT INJECTION 10 ML in D5W/0.9% SODIUM CHLORIDE 1,000 ML IV SCH (15:25)
[2016-10-28 16:00] VITALS: BP 111/62
[2016-10-28 20:00] VITALS: BP 116/72
[2016-10-28] MEDS: PANTOPRAZOLE 40MG TAB (PROTONIX) PO SCH (20:10)
[2016-10-29] VITALS: BP 125/75
[2016-10-29] MEDS ORDERED: POTASSIUM CHLORIDE 10 MEQ SR TABLET PO ONE (06:45)
[2016-10-29] MEDS: SUCRALFATE 1 GM TAB PO SCH ×4 (07:49→20:34)
[2016-10-29] MEDS: ONDANSETRON 4MG/2ML VIAL (J2405) IV PRN ×2 (07:55→22:16)
[2016-10-29 08:00] VITALS: BP 116/69
[2016-10-29 08:15] LABS: MEAN CORPUSCULAR HEMOGLOBIN 30.3 pg (27.0-33.0); MEAN CORPUSCULAR HGB CONC 34.6 g/dl (32.0-36.5); MEAN CORPUSCULAR VOLUME 87.7 fl (80.0-96.0); RED CELL DISTRIBUTION WIDTH 14.6 % (11.5-14.5); WHITE BLOOD COUNT 5.6 K/mm3 (4.0-10.0)
[2016-10-29 08:40] LABS: ANION GAP 7 MEQ/L (8-16); BLOOD UREA NITROGEN < 1 MG/DL (7-18); CALCIUM LEVEL 7.7 MG/DL (8.5-10.1); CARBON DIOXIDE LEVEL 27 MEQ/L (21-32); CHLORIDE LEVEL 105 MEQ/L (98-107); CREATININE FOR GFR 0.69 MG/DL (0.55-1.02); GLOMERULAR FILTRATION RATE > 60.0 (>60); GLUCOSE, FASTING 101 MG/DL (70-105); POTASSIUM SERUM 3.1 MEQ/L (3.5-5.1); SODIUM LEVEL 139 MEQ/L (136-145)
[2016-10-29] MEDS: predniSONE 20 MG TAB PO SCH (09:11)
[2016-10-29] MEDS: PANTOPRAZOLE 40MG TAB (PROTONIX) PO SCH ×2 (09:11→20:35)
[2016-10-29] MEDS: KCL 20MEQ IN D5/NS 1000ML 1,000 ML IV SCH ×2 (09:12→23:47)
[2016-10-29 12:00] VITALS: BP 102/55
[2016-10-29] MEDS: MULTIVITAMIN -ADULT INJECTION 10 ML in D5W/0.9% SODIUM CHLORIDE 1,000 ML IV SCH (15:16)
[2016-10-29 16:00] VITALS: BP 101/59
--- NOTE | 2016-10-29 17:47 | IPN ---
DATE: 10/29/2016 SUBJECTIVE: The patient is seen and examined at the bedside. Chart has been reviewed. She still complains of occasional nausea. No vomiting. She seems to be tolerating her diet well. She still complains of slight abdominal discomfort at the colostomy site. Stool is noted on the colostomy site with some blood-tinged stool. No complaints of chest pain, pressure or tightness, lightheadedness, dizziness when she ambulates. VITAL SIGNS: Temperature 99.2, pulse 77, respiratory rate 16, blood pressure 102/55, 98% on room air. LUNGS: Clear to auscultation. No wheezes, rales, or rhonchi. HEART: S1, S2, sinus rhythm. ABDOMEN: Soft, ileostomy right lower quadrant. Abdomen is soft. Positive bowel sounds. EXTREMITIES: No pitting edema. LABORATORY DATA: White count 5.6, hemoglobin 11, hematocrit 31, platelet count 254. Sodium 139, potassium 3.1, chloride 105, bicarbonate 27, BUN less than 1, creatinine 0.69, glucose of 101. ASSESSMENT AND PLAN: This is a 20-year-old female with history of ulcerative colitis, colectomy with ileostomy in April 2016 and J-pouch in August 2016, attention deficit hyperactivity disorder (ADHD), anemia, nephrolithiasis, depression, presents with left upper quadrant abdominal pain radiating to the back, admitted for pancreatitis, treated with IV fluids, evaluated with ultrasound shows unremarkable ultrasound and right upper quadrant with no ascites. CT abdomen and pelvis showed distended gallbladder. No evidence of cholelithiasis or acute cholecystitis. CURRENT ISSUES: 1. Pancreatitis, currently on liquid diet. The patient has improved. Dr. Coronel has been consulted. 2. Mild elevation in lipase. Continue to observe. 3. History of ulcerative colitis, status post colon resection, J-pound and anastomosis of jejunum with anus with ostomy performed in August of 2016. The patient requires one more procedure to complete her anastomosis. 4. Positive hemoccult. Hemoglobin and hematocrit is still stable. Defer to Dr. Coronel if further invasive evaluation is required. 5. Anemia. Hemoglobin and hematocrit remain stable. Continue to monitor for now. 6. History of depression, on no medication. 7. Attention deficit hyperactivity disorder (ADHD), on no medication. 8. Deep vein thrombosis (DVT) prophylaxis. Due to gastrointestinal (GI) bleed, currently on sequential compression devices.
[2016-10-29 20:00] VITALS: BP 100/61
[2016-10-30] MEDS: ONDANSETRON 4MG/2ML VIAL (J2405) IV PRN (03:22)
[2016-10-30 07:00] LABS: MEAN CORPUSCULAR HEMOGLOBIN 29.8 pg (27.0-33.0); MEAN CORPUSCULAR HGB CONC 33.2 g/dl (32.0-36.5); MEAN CORPUSCULAR VOLUME 89.6 fl (80.0-96.0); RED CELL DISTRIBUTION WIDTH 14.8 % (11.5-14.5); WHITE BLOOD COUNT 5.4 K/mm3 (4.0-10.0)
[2016-10-30 07:22] LABS: ANION GAP 8 MEQ/L (8-16); BLOOD UREA NITROGEN 2 MG/DL (7-18); CARBON DIOXIDE LEVEL 24 MEQ/L (21-32); CHLORIDE LEVEL 108 MEQ/L (98-107); CREATININE FOR GFR 0.63 MG/DL (0.55-1.02); GLOMERULAR FILTRATION RATE > 60.0 (>60); GLUCOSE, FASTING 107 MG/DL (70-105); POTASSIUM SERUM 3.6 MEQ/L (3.5-5.1); SODIUM LEVEL 140 MEQ/L (136-145)
[2016-10-30] MEDS ORDERED: PRED20TA PO (08:44)
[2016-10-30] MEDS ORDERED: PANT40TA2 PO (08:44)
[2016-10-30] MEDS ORDERED: SUCR1TA PO (08:44)
[2016-10-30] MEDS ORDERED: PERCOCET PO (08:44)
[2016-10-30] MEDS: SUCRALFATE 1 GM TAB PO SCH ×2 (08:56→12:24)
[2016-10-30] MEDS: predniSONE 20 MG TAB PO SCH (08:56)
[2016-10-30] MEDS: PANTOPRAZOLE 40MG TAB (PROTONIX) PO SCH (08:56)
[2016-10-30 09:15] VITALS: BP 112/57
[2016-10-30] MEDS ORDERED: PROM25TA PO (11:41)
[2016-10-30] MEDS ORDERED: PROMETHAZINE 25 MG TAB PO PRN (11:45)
--- NOTE | 2016-11-01 11:17 | DSES ---
DATE OF ADMISSION: 10/21/2016 DATE OF DISCHARGE: 10/30/2016 PRIMARY CARE PROVIDER: Dr. Jauregui. CONSULTANTS: Dr. Coronel, frame cleaner. PRIMARY DISCHARGE DIAGNOSES: 1. Possible gastritis. 2. Pancreatitis. 3. History of ulcerative colitis with ileostomy. 4. Adrenal insufficiency. 5. Anemia. 6. Depression. 7. Attention deficit hyperactivity disorder (ADHD). DISCHARGE MEDICATIONS: - Percocet one tablet every four hours as needed for pain, maximum daily dose of six, 30 tablets dispensed - Protonix 40 mg every 12 hours - prednisone 20 mg daily, 30 tablets dispensed - promethazine 25 mg every four hours as needed - Carafate 1 gram by mouth before meals and at bedtime - Athemia 0.15 to 0.03 one tablet at bedtime FOLLOWUP ISSUES: Followup with Dr. Coronel and primary care physician within five days of hospital discharge. HOSPITAL COURSE: This is a 20-year-old female with history of ulcerative colitis status post ileostomy, ADHD, anemia, nephrolithiasis, depression, colectomy and ileostomy in April, and J-pouch in August, who presents to the emergency room with complaints of left upper quadrant abdominal pain radiating to the back. The patient was in [place] drinking with her boyfriend for the past week, more than usual. Presents with nausea and vomiting, admitted and complains of upper respiratory infection which resolved prior to admission. The patient was admitted for pancreatitis most likely secondary to alcohol use. Currently on Amethia which can also cause pancreatitis but less likely. She states she has been on this medication for two years. Ultrasound showed distention of the gallbladder but no cholelithiasis. CT abdomen and pelvis did not reveal any arcadio stones. The patient was kept nothing by mouth with intravenous (IV) fluids and IV pain medication, and admitted to medical/surgical floor. During her hospital stay, she had blood-tinged discharge via the ileostomy, evaluated by Dr. Coronel who believed that she may have had gastritis, treated with Protonix as well as Carafate with no requirement for blood transfusion and stable hemoglobin and hematocrit. The patient was slowly advanced in her diet which she tolerated well. Still with episodes of nausea but without overt vomiting. Per Dr. Coronel, the patient may followup as outpatient but to continue the steroids. She was discharged in stable condition. Followup with her primary care physician and Dr. Coronel as outpatient. LABORATORIES ON DISCHARGE: White count 5.4, hemoglobin 10, hematocrit 32, platelet count 254. Sodium 140, potassium 3.6, chloride 108, bicarbonate 24, BUN 2, creatinine 0.63, glucose 107, lipase level of 504. MICROBIOLOGY: GI panel 10/26 negative. Hemoccult stool 10/25 positive. IMAGING: CT abdomen and pelvis 10/21 shows right-sided ileostomy, post-surgical bowel changes within normal. No infective or inflammatory bowel changes seen. Hepatomegaly, distended gallbladder. No evidence of cholelithiasis or acute cholecystitis. Ultrasound gallbladder on 10/21 shows unremarkable ultrasound of right upper quadrant. Lipid panel: Triglycerides 108, total cholesterol 115, LDL 55, HDL 77. TIME SPENT ON DISCHARGE: 40 minutes.
--- NOTE | 2016-11-04 12:54 | CR ---
DATE OF CONSULTATION: 10/26/2016 This is a 20-year-old white female who was admitted to [facility] on 10/21/2016. The patient is known to me from a previous history of severe ulcerative colitis, which required a total proctocolectomy with ileorectal anastomosis. The patient has a temporary ileostomy bag and has had ileorectal anastomosis created in [place] by Dr. Diana in August. The patient presents with a 2-3-day history of epigastric pain and nausea and vomiting of unknown etiology. The patient stated pain as being somewhat in the left upper quadrant. She apparently was drinking somewhat excessively more recently. She denies any fevers, night sweats, or shaking chills. The patient being admitted now for observation for probable pancreatitis. PAST MEDICAL HISTORY: Is positive for 1. Ulcerative colitis. 2. A total colectomy with ileostomy in April and then J pouch created In August with a temporary ileostomy at this time. 3. Attention deficit hyperactivity disorder (ADHD). 4. Anemia. 5. Nephrolithiasis. 6. Depression. PAST SURGICAL HISTORY: As above. REVIEW OF SYSTEMS: Noncontributory to the above problem. SOCIAL HISTORY: Cigarettes, alcohol, and drugs negative. FAMILY HISTORY: Is noncontributory. ALLERGIES: No known declared allergies. PHYSICAL EXAMINATION: General: This is well-developed thin white female with right-sided ileostomy bag noted. Abdomen: Soft, positive gastric tenderness. No hepatosplenomegaly. Bowel sounds positive. Extremities: No cyanosis, clubbing, edema. Homans negative. IMAGING STUDIES: Showed a normal CT with the ileostomy, stable hepatomegaly. No gallstones noted. LABORATORY STUDIES ON ADMISSION: Showed a white count of 4400. Hemoglobin and hematocrit 15.3 and 45.6. The patient's chemistries were normal. Lipase was 469 on admission. Gallbladder ultrasound on admission was normal with no stones appreciated. ANALYSIS: Probable pancreatitis secondary to alcohol intake at the time. The plan will be to treat the patient symptomatically. Intravenous (IV) fluids. Pain control. May consider giving the patient oral steroids since this is a stress situation and might require a stress dose of steroids, on cortisone stress rather than . PLAN: As above. I will follow the patient.
== END 2016-10-30 14:04 | disposition home or self-care (01) | DRG 440 ==
LOC: M ED 17:58 → M ED INP 20:27 → M PED 22:12
PROVIDERS: ADMIT Internal Medicine; ATTEND General Practice
DX: K85.90 Acute pancreatitis without necrosis or infection, unspecified (principal); K29.70 Gastritis, unspecified, without bleeding; R19.5 Other fecal abnormalities; E87.6 Hypokalemia; E16.2 Hypoglycemia, unspecified; Z93.2 Ileostomy status; Z79.52 Long term (current) use of systemic steroids; Z79.899 Other long term (current) drug therapy; Z90.49 Acquired absence of other specified parts of digestive tract; Z87.891 Personal history of nicotine dependence

== ENCOUNTER → 2016-11-06 | Outpatient (CLI) | payer OTHER ==
[~2016-11-06] MED LIST changes: +PANT40TA2 PO; +PERCOCET PO; +PROM25TA PO; +SUCR1TA PO
[2016-11-06 17:08] LABS: ALBUMIN 3.4 GM/DL (3.2-5.2); ALBUMIN/GLOBULIN RATIO 0.85 (1.00-1.93); ALKALINE PHOSPHATASE 145 U/L (45-117); ALT/SGPT 1145 U/L (12-78); ANION GAP 11 MEQ/L (8-16); AST/SGOT 280 U/L (15-37); BILIRUBIN,TOTAL 0.5 MG/DL (0.2-1.0); BLOOD UREA NITROGEN 13 MG/DL (7-18); CALCIUM LEVEL 9.2 MG/DL (8.5-10.1); CARBON DIOXIDE LEVEL 26 MEQ/L (21-32); CHLORIDE LEVEL 101 MEQ/L (98-107); FERRITIN 62 NG/ML (8-252); GLOMERULAR FILTRATION RATE > 60.0 (>60); GLUCOSE, FASTING 137 MG/DL (70-105); POTASSIUM SERUM 4.3 MEQ/L (3.5-5.1); SODIUM LEVEL 138 MEQ/L (136-145); TOTAL PROTEIN 7.4 GM/DL (6.4-8.2)
[2016-11-06 19:19] LABS: BASO # 0.1 K/mm3 (0.0-0.2); BASO % 0.6 % (0.0-1.0); EOS # 0.1 K/mm3 (0.0-0.50); LARGE UNSTAINED CELL # 0.1 K/mm3 (0.0-0.4); LARGE UNSTAINED CELL % 0.9 % (0.0-4.0); LYMPH # 1.3 K/mm3 (1.5-6.5); LYMPH % 10.9 % (24.0-44.0); MEAN CORPUSCULAR HEMOGLOBIN 29.7 pg (27.0-33.0); MEAN CORPUSCULAR HGB CONC 32.2 g/dl (32.0-36.5); MEAN CORPUSCULAR VOLUME 92.3 fl (80.0-96.0); MONO # 0.6 K/mm3 (0.0-0.8); MONO % 5.2 % (0.0-5.0); NEUTROPHILS # 9.7 K/mm3 (1.8-7.7); NEUTROPHILS % 81.5 % (36.0-66.0); PLATELET COUNT, AUTOMATED 506 k/mm3 (150-450); RED CELL DISTRIBUTION WIDTH 14.7 % (11.5-14.5); WHITE BLOOD COUNT 11.9 K/mm3 (4.0-10.0)
== END ==
LOC: M WUC 11:49
PROVIDERS: ATTEND Family Medicine
DX: K51.911 Ulcerative colitis, unspecified with rectal bleeding (principal); D50.0 Iron deficiency anemia secondary to blood loss (chronic)

== ENCOUNTER → 2016-11-07 | Outpatient (CLI) | payer OTHER ==
[2016-11-08 09:35] LABS: CONTROL LINE MONO INT CTR LINE PRESENT
== END ==
LOC: M WUC 16:29
PROVIDERS: ATTEND Internal Medicine Gastroenterology
DX: R74.0 Nonspecific elevation of levels of transaminase and lactic acid dehydrogenase [LDH] (principal)

== ENCOUNTER → 2017-05-13 | Outpatient (REF) | payer OTHER ==
[~2017-05-13] MED LIST changes: +AZAT50TA2 PO; -AZAT5TAB PO; -BIOT10005 PO; +BIOT10008 PO; +FERR1TAB8 PO; -FERR325T PO; +LOPE2CAP PO; -LOPE2TAB PO; +PRED10TA2 PO
== END ==
LOC: M LAB REF 16:38
PROVIDERS: ATTEND Family Medicine
DX: Z12.4 Encounter for screening for malignant neoplasm of cervix (principal); Z11.3 Encounter for screening for infections with a predominantly sexual mode of transmission
CPT/HCPCS: 87491; 87591; G0123